=== PATIENT | male | born 1955 | race Caucasian/White ===

== ENCOUNTER 2021-03-25 13:51 | Inpatient (IN) | payer MEDICARE ==
[~2021-03-25] VITALS: Ht 175.3 cm; Wt 80.7 kg
[2021-03-25 14:21] LABS: *BILIRUBIN,URIN NEGATIVE (NEGATIVE); *CLARITY,URINE CLEAR (CLEAR); *COLOR,URINE YELLOW (YELLOW); *KETONES,URINE NEGATIVE (NEGATIVE); *UROBILINOGEN,URINE 0.2 E.U./dl (NORMAL); LEUKOCYTE ESTERASE ,URINE TRACE (NEGATIVE); NITRITE, URINE NEGATIVE (NEGATIVE); UGLUCOSE NEGATIVE (NEGATIVE)
[2021-03-25 14:27] LABS: *AMPHETAMINE, URINE NEGATIVE (NEGATIVE); *CANNABINOID, URINE NEGATIVE (NEGATIVE); *COCCAINE, URINE NEGATIVE (NEGATIVE); *OPIATE, URINE NEGATIVE (NEGATIVE); *PHENCYCLIDINE SCREEN,URINE NEGATIVE (NEGATIVE)
[2021-03-25 14:30] LABS: *BLOOD, URINE TRACE INTACT (NEGATIVE)
[2021-03-25 14:43] LABS: HEMATOCRIT 47.3 % (36.7-47.1); MEAN CORPUSCULAR HEMOGLOBIN 32.6 uug (23.8-33.4); PLATELET COUNT (AUTO) 329 K/uL (152-348)
[2021-03-25 14:46] LABS: BACTERIA,URINE FEW /HPF (NONE SEEN); RBC,URINE 0-3 /HPF (0-3)
[2021-03-25 14:46] LABS: CARBON DIOXIDE 26 mmol/L (21-32); CHLORIDE 103 mmol/L (98-107); CREATININE 0.9 mg/dL (0.6-1.3); GLUCOSE 106 mg/dL (74-106); POTASSIUM 3.9 mmol/L (3.5-5.1); UREA NITROGEN, BLOOD 13 mg/dL (7-18)
[2021-03-25 14:47] LABS: SQUAMOUS EPITHELIAL CELL,UR NONE SEEN /HPF (NONE SEEN)
[2021-03-25 14:52] LABS: ALANINE AMINOTRANSFERASE 18 U/L (16-63); ALKALINE PHOSPHATASE 79 U/L (50-136); ASPARTATE AMINOTRANSFERASE 11 U/L (15-37); BILIRUBIN,DIRECT 0.1 mg/dL (0.0-0.2); BILIRUBIN,TOTAL 0.5 mg/dL (0.2-1.0); TOTAL PROTEIN, SERUM 6.8 g/dL (6.4-8.2)
--- NOTE | 2021-03-25 14:55 | NUR ---
PT IS IN ROOM #5. DR SALAS EVALUATED THE PT.
[2021-03-25 14:56] LABS: ACETAMINOPHEN < 2.0 ug/mL (10-30); ETHANOL < 3 MG/DL (0-0)
--- NOTE | 2021-03-25 16:05 | NUR ---
Gps/Development Consultant- Received report from Charlie MARTIN (ER) Received patient via gurney, in no sign of any distress. Upon face to face encounter patient verbalized feelings of hopelessness, claimed had been depressed, not living the house, not showering, no hygiene, no plan for self care, denies any S.I. Per patient he watches TV most of the time at home, poor nutritional intake. Noted patient, long hair all tangled, never comb his hair, long fingernails, long elizabeth . Per patient her used to drink 25 years ago ( heavy liquor , gin) always falling , shattering his face, that he ends up in a Behavioral Health unit in [place], [place]. Claimed he never takes any drugs. Spoke to Monica(Ex-) [phone] , verbalized her total support. Oriented to unit setting , routine admission care .
--- NOTE | 2021-03-25 16:06 | NUR ---
REPORT WAS GIVEN TO RN MHU. PT WAS TRANSFERED TO M[facility] ROOM #137.
[2021-03-25 16:19] VITALS: BP 125/63
[2021-03-25] MEDS ORDERED: TRAZODONE 50 MG TABLET PO SCH (18:00)
--- NOTE | 2021-03-25 18:00 | NUR ---
Gps/Emergency Management System Director- Son Dann requesting to talk to Inspector [employer]icon[employer] Wafer, informed Inspector [employer]icon[employer] Wafer gone for the day and will be back tomorrow. Son claimed patient might not want to take medications as prescribed by Dr Nagy .
--- NOTE | 2021-03-25 18:09 | NUR ---
Gps/Bankruptcy Law Specialist- Rudolph Quigley ([phone]) in to visit patient, provided information about patient history. Claimed patient had long history of bipolar disorder , with waves of few years of depression on and off , agitations. Son wants to be the first contact center team lead , claimed his Mother(Monica) is not strong enough to give him limits and directions. Patient stayed in the dinning room was able to eat dinner. Dr Shelley Nagy was in to see patient
[2021-03-25] MEDS ORDERED: MAGNESIUM HYDROXIDE 30 ML LIQUID UDC PO PRN (18:45)
[2021-03-25] MEDS ORDERED: ACETAMINOPHEN 325 MG TABLET PO PRN (18:45)
[2021-03-25] MEDS ORDERED: MAG HYDROX/AL HYDROX/SIMETH 30 ML LIQUID UDC PO PRN (18:45)
[2021-03-25 19:58] VITALS: BP 126/62
[2021-03-25] MEDS ORDERED: LORAZEPAM 1 MG TABLET PO PRN (20:00)
[2021-03-25] MEDS: TRAZODONE 100 MG TABLET PO SCH (21:00)
[2021-03-26 07:30] VITALS: BP 151/67
--- NOTE | 2021-03-26 09:52 | NUR ---
Firearms Report: Senior Accounting Manager completed and submitted a [employer] firearms report for 5150 grave disability certifications. A copy of report has been placed in patient chart.
--- NOTE | 2021-03-26 11:27 | NUR ---
KATHY Initial Discharge Plan: Patient resides at home [address], [place] [address] ([phone]) with ex- Monica Mccray. Patient would like to return home upon discharge. KATHY will continue to work with patient, family, and MD to ensure a safe and proper discharge plan.
--- NOTE | 2021-03-26 15:39 | NUR ---
KATHY Family Contact: SW spoke with patient's ex- Monica Mccray ([phone]) and discussed treatment and discharge plan.
[2021-03-26 16:43] VITALS: BP 103/62
--- NOTE | 2021-03-26 17:00 | NUR ---
Gps/Therapy Coordinator- Patient noted had been in and out of his room to activity room watching TV, encouraged verbalizations of his needs. , stated " will be better off when i get out of here" Encouraged to initiate simple tasks to assist self with his simple hygiene , flat guarded.
[2021-03-26 20:00] VITALS: BP 121/62
[2021-03-26] MEDS: TRAZODONE 100 MG TABLET PO SCH (21:54)
--- NOTE | 2021-03-27 05:50 | NUR ---
GPS: Pt.slept 6 hrs.last night. Continues to refuse shower despite numerous attempts by staff. Poor hygiene and is disheveled. Denies SI. Gets irritable when reminded to keep door open for safety. Unit rules re-inforced prn. Will continue to monitor.
[2021-03-27 07:45] VITALS: BP 117/58
[2021-03-27 08:20] LABS: *BILIRUBIN,URIN NEGATIVE (NEGATIVE); *CLARITY,URINE CLEAR (CLEAR); *COLOR,URINE YELLOW (YELLOW); *KETONES,URINE NEGATIVE (NEGATIVE); *UROBILINOGEN,URINE 0.2 E.U./dl (NORMAL); LEUKOCYTE ESTERASE ,URINE NEGATIVE (NEGATIVE); NITRITE, URINE NEGATIVE (NEGATIVE); PH,URINE 5.5 (5.0-8.0); UGLUCOSE NEGATIVE (NEGATIVE)
[2021-03-27 08:57] LABS: *BLOOD, URINE TRACE (NEGATIVE)
[2021-03-27 09:04] LABS: BACTERIA,URINE NONE SEEN /HPF (NONE SEEN); MUCUS,URINE FEW /LPF (0-FEW); RBC,URINE 0-3 /HPF (0-3); SQUAMOUS EPITHELIAL CELL,UR NONE SEEN /HPF (NONE SEEN); WBC,URINE 0-3 /HPF (0-3)
--- NOTE | 2021-03-27 13:19 | NUR ---
GPS: Nursing Notes: Thought Disorder: Patient is awake and responding to his name, isolative and withdrawn in his room, continue to refuse to shower, poor hygiene, unkempt appearance, setting limits, but patient continue to closed the door, depressed mood, verbally amparo for safety, denies SI/HI, believes that he would be better off at home, needs a lot of prompting for minimal participation in therapeutic groups, low energy level, unable to formulate a viable plan for self care, continue to monitor for safety, continue with treatment plan.
[2021-03-27 16:13] VITALS: BP 106/63
[2021-03-27 20:00] VITALS: BP 102/67
[2021-03-27] MEDS: TRAZODONE 100 MG TABLET PO SCH (20:13)
[2021-03-28 07:30] VITALS: BP 126/67
[2021-03-28 15:08] VITALS: BP 119/64
--- NOTE | 2021-03-28 16:33 | NUR ---
GPS: Nursing Notes: Self Care Deficit: Patient is awake and responding to his name, unkempt appearance, refusing to shower, patient promise her ex- that he was going to take a shower today, but continue to refuse to shower, stated "I don't want to have visitors today..", calling his ex- and informing her not to come today, isolative and withdrawn in his room, malodorous, disheveled, poor grooming, depressed mood and withdrawn affect, unable to formulate a viable plan for self care, continue to monitor for safety, verbally amparo for safety, denies SI/HI, continue with treatment plan.
[2021-03-28 20:00] VITALS: BP 129/66
[2021-03-28] MEDS: TRAZODONE 100 MG TABLET PO SCH (20:32)
[2021-03-29 07:32] VITALS: BP 108/72
[2021-03-29 15:54] VITALS: BP 108/72
--- NOTE | 2021-03-29 18:34 | NUR ---
GPS: Nursing Notes: Self Care Deficit: Patient is awake and responding to his name, isolative and withdrawn in his room, encourage to shower, continue to refuse to shower, stated "I take a shower tomorrow..", unkempt appearance, poor hygiene, malodorous, believes that he does not need to shower, gets easily irritable when redirected, unable to formulate a viable plan for self care, continue with treatment plan.
[2021-03-29 19:58] VITALS: BP 120/63
[2021-03-29] MEDS: DIVALPROEX 250 MG TABLET.DR PO SCH (20:27)
[2021-03-29] MEDS: TRAZODONE 100 MG TABLET PO SCH (20:27)
[2021-03-30 07:30] VITALS: BP 98/66
[2021-03-30] MEDS: DIVALPROEX 250 MG TABLET.DR PO SCH ×2 (08:22→20:10)
--- NOTE | 2021-03-30 13:15 | NUR ---
GPS: Nursing Notes: Self Care Deficit: Patient is awake and responding to his name, assisted with ADL's, redirected during shift, encourage to take a shower. Patient agree to shower, shave, and cut his hair today, needs prompting to participate in therapeutic groups, spindle carver able to cut his toenails after he showered, continue to be isolative in his room at times, depressed mood and anxious affect, gets easily irritable at times, unable to formulate a viable plan for self care, continue with treatment plan.
[2021-03-30 14:37] VITALS: BP 117/71
[2021-03-30 19:40] VITALS: BP 108/55
[2021-03-30] MEDS: TRAZODONE 100 MG TABLET PO SCH (20:10)
--- NOTE | 2021-03-31 06:28 | NUR ---
GPS: Pt.slept 7 hrs.last night. Less irritable and denies feeling depressed. Re-assured and re-directed prn. Good personal hygiene encouraged. Safe environment provided. Will continue to monitor.
[2021-03-31 07:30] VITALS: BP 113/64
[2021-03-31] MEDS: DIVALPROEX 250 MG TABLET.DR PO SCH ×2 (08:35→20:56)
--- NOTE | 2021-03-31 09:00 | NUR ---
GPS: RECEIVED PT ON BED. AWAKE, DONE WITH BREAKFAST. PT COOPERATIVE WITH CARE. MEDICATION COMPLIANT OF THIS MORNING. PT TOOK A SHOWER YESTERDAY FOR THE FIRST TIME.
--- NOTE | 2021-03-31 12:43 | NUR ---
KATHY PC Hearing: Patient had 5250 probable cause hearing today and it was upheld for grave disability.
[2021-03-31 16:00] VITALS: BP 113/76
--- NOTE | 2021-03-31 18:22 | NUR ---
GPS: PT ALERT AND VERBALLY RESPONSIVE. NO AGITATION OR ANXIETY NOTED. PT COMPLIANT WITH MEDS AND CARE. PT STAYED IN HIS ROOM. X- CALLED AND SPOKE TO PT. ENCOURAGED PT TO JOIN GROUP THERAPY.
[2021-03-31 19:51] VITALS: BP 133/71
[2021-03-31] MEDS: TRAZODONE 100 MG TABLET PO SCH (20:55)
--- NOTE | 2021-04-01 03:10 | NUR ---
Received to care, at start of shift, isolative, in room, but pleasant upon approach. Watched tv for a while, and went to sleep, around 2330. As of now, he remains asleep. No distress noted. Will continue to monitor closely.
--- NOTE | 2021-04-01 06:00 | NUR ---
Slept 5.5 hours, total.
[2021-04-01 07:30] VITALS: BP 127/80
[2021-04-01] MEDS: DIVALPROEX 250 MG TABLET.DR PO SCH ×2 (08:08→20:46)
--- NOTE | 2021-04-01 10:30 | NUR ---
GPS: SACRAL REDNESS AND RIGHT BUTTOCK BLISTER PT HAD A SHOWER TODAY AND NOTED WITH SACRAL AREA REDNESS AND RIGHT BUTTOCK BLISTER. WILL GET WOUND CONSULT. Addendum: 04/01/21 at 1842 by DANE HOLLINGSWORTH RN ERROR: WRONG PT NOTES.
[2021-04-01 16:00] VITALS: BP 104/64
--- NOTE | 2021-04-01 18:42 | NUR ---
GPS: PT ALERT AND VERBALLY RESPONSIVE. PT STAYS IN THE ROOM ISOLATIVE MOST OF THE TIME, READING MAGAZINES. PT WENT TO DINING ROOM AND WATCH TV. ENCOURAGED TO PARTICIPATE WITH GROUP THERAPY.
[2021-04-01] MEDS: TRAZODONE 100 MG TABLET PO SCH (20:46)
[2021-04-01 21:23] VITALS: BP 108/59
--- NOTE | 2021-04-02 03:30 | NUR ---
Received to care, at start of shift, isolative, in room, but pleasant upon approach. Watched tv for a while, and went to sleep, around 0030. As of now, he remains asleep. No distress noted. Will continue to monitor closely.
--- NOTE | 2021-04-02 06:00 | NUR ---
Slept 5 hours total. Continues to sleep. no dsitress, noted.
[2021-04-02 07:30] VITALS: BP 122/65
[2021-04-02] MEDS: DIVALPROEX 250 MG TABLET.DR PO SCH ×2 (10:11→20:25)
[2021-04-02 16:00] VITALS: BP 126/68
[2021-04-02 19:50] VITALS: BP 124/69
[2021-04-02] MEDS: TRAZODONE 100 MG TABLET PO SCH (20:25)
--- NOTE | 2021-04-03 01:39 | NUR ---
Received to care, at start of shift, watching tv with peers, with minimal interaction. He went to sleep, around an hour or so, ago. As of now, he remains asleep. No distress noted. Will continue to monitor closely.
--- NOTE | 2021-04-03 06:00 | NUR ---
Slept well. Continues to sleep. no distress noted.
[2021-04-03 07:30] VITALS: BP 138/72
[2021-04-03] MEDS: DIVALPROEX 250 MG TABLET.DR PO SCH ×2 (08:39→20:28)
[2021-04-03 16:00] VITALS: BP 104/64
--- NOTE | 2021-04-03 18:07 | NUR ---
GPS: PT ALERT AND ORIENTED. COOPERATIVE WITH CARE AND COMPLIANT WITH MEDICATIONS. PARTICIPATED WITH GROUP THERAPIES. WITH EPISODE OF DEPRESSION NOTED. PT CALM AND RELAXED MOST OF THE TIME.
[2021-04-03 20:00] VITALS: BP 112/60
[2021-04-03] MEDS: TRAZODONE 100 MG TABLET PO SCH (20:28)
[2021-04-04] MEDS: TEMAZEPAM 7.5 MG CAPSULE PO PRN ×2 (00:07→22:49)
[2021-04-04 07:56] VITALS: BP 100/59
[2021-04-04] MEDS: DIVALPROEX 250 MG TABLET.DR PO SCH ×2 (08:21→20:32)
[2021-04-04 15:56] VITALS: BP 114/63
[2021-04-04 20:19] VITALS: BP 112/62
[2021-04-04] MEDS: TRAZODONE 100 MG TABLET PO SCH (20:32)
[2021-04-05 07:52] VITALS: BP 141/71
[2021-04-05] MEDS: DIVALPROEX 250 MG TABLET.DR PO SCH ×2 (08:45→20:11)
[2021-04-05 16:07] VITALS: BP 130/69
--- NOTE | 2021-04-05 17:11 | NUR ---
patient is alert and oriented. he is cooperative, redirectable, but is anxious. patient is medication compliant. patient denies suicidal and homicidal ideation. patient is able to ambulate independently. Vital signs are WNL. patient able to provide for self care and ADL's independently. encouraged to participate in unit groups and therapeutic activities. educated about impulse control and safety. verbalizes understanding.
[2021-04-05] MEDS: TRAZODONE 100 MG TABLET PO SCH (20:01)
[2021-04-05 20:06] VITALS: BP 104/62
[2021-04-05] MEDS: TEMAZEPAM 7.5 MG CAPSULE PO PRN (22:29)
--- NOTE | 2021-04-06 03:17 | NUR ---
Received patient in the dinning room, compliant, pleasant upon approach, med compliant, compliant with care, semi fair insight and semi fair judgement. Patient will remain in psych facility for further evaluation and treatment.
[2021-04-06 07:30] VITALS: BP 115/61
[2021-04-06] MEDS: DIVALPROEX 250 MG TABLET.DR PO SCH ×2 (08:18→20:27)
[2021-04-06 15:03] VITALS: BP 105/63
--- NOTE | 2021-04-06 18:01 | NUR ---
patient is alert and oriented x4. he is calm, cooperative, and redirectable. patient is medication compliant. patient denies suicidal and homicidal ideation. patient is able to ambulate independently, able to provide for self care and ADL's independently. encouraged to participate in unit groups and therapeutic activities. educated about impulse control and safety. verbalizes understanding.
[2021-04-06 20:00] VITALS: BP 119/56
[2021-04-06] MEDS: TRAZODONE 100 MG TABLET PO SCH (20:27)
--- NOTE | 2021-04-07 02:25 | NUR ---
Received patient, at the start of the shift, in the day room, interacting with his peers. Patient is aware of being discharged in am and is glad to be going. No SI or HI, no behavioral issues and no distress. Continuing to monitor and follow the plan of care.
[2021-04-07 07:30] VITALS: BP 128/39
[2021-04-07] MEDS: DIVALPROEX 250 MG TABLET.DR PO SCH (08:31)
--- NOTE | 2021-04-07 11:29 | NUR ---
GPS: PT ALERT AND VERBALLY RESPONSIVE. PT EXCITED TO BE DISCHARGE TODAY. PT COOPERATIVE WITH CARE AND COMPLIANT WITH MEDICATIONS. EX- PETE WILL MANAGER WINTER PT AT 1300. PT WILL BE FOLLOW-UP BY [facility] AND WILL BE ADMITTED TOMORROW. PT DENIES SUICIDAL/ HOMICIDAL IDEATION. PRESENTS EUTHYMIC MOOD AND CONGRUENT AFFECT. PT IS AWARE AND AGEEABLE WITH DISCHARGE PLAN.
--- NOTE | 2021-04-07 11:38 | NUR ---
Discharge Note: Patient will be discharged home [address] [place] [address] ([phone]). Patients ex- Monica Mccray ([phone]) will be picking up the patient today at 1PM. Patient is alert and oriented x4 and is aware and agreeable with discharge plan. Pt denies suicidal or homicidal ideation. Patient presents with euthymic mood and congruent affect. Patient is referred to [facility] [place] [address] ([phone]) and has an appointment scheduled on 04/13/21 at 1PM. Patient is referred to [facility] for Primary [facility] [place] [phone]: ([phone]) and has an Appointment scheduled on 05/12/21 at 9:20AM. Patient is also referred to [facility]. ( ) Michelle Hutchison and will be admitted tomorrow 04/08/21. Patient will have medication management, shower assistance, physical therapy, and nurse visits several times a week. Patient was also provided with outpatient mental health resources to [facility] Crisis Line , and the National Suicide Prevention Lifeline .
--- NOTE | 2021-04-07 13:43 | NUR ---
GPS: PT DISCHARGED FROM THE HOSPITAL TO HOME. PICKED UP BY EX- HERBER. PT EXCITED TO GO HOME. COMPLIANT WITH MEDS AND COOPERATIVE WITH CARE. PT INSTRUCTED THAT [facility] WILL BE ADMITTING HIM. PT WILL ALSO HAVE APPOINTMENT FOR FOLLOW UP. MEDICATION PRESCRIPTIONS GIVEN AND ALL BELONGINGS GIVEN AND FORMS SIGNED.
== END 2021-04-07 13:40 | disposition home or self-care (01) | DRG 881 ==
LOC: ER 13:51 → GPS 15:48
PROVIDERS: ADMIT Psychiatry & Neurology Psychiatry; ATTEND Internal Medicine
PROC: 0HBRXZZ Excision of Toe Nail, External Approach (ICD-10-PCS; principal; 2021-03-30)
DX: F32.A Depression, unspecified (principal); F29 Unspecified psychosis not due to a substance or known physiological condition; F41.9 Anxiety disorder, unspecified; L85.3 Xerosis cutis; M20.41 Other hammer toe(s) (acquired), right foot; M20.42 Other hammer toe(s) (acquired), left foot; Z20.822 Contact with and (suspected) exposure to COVID-19; Z73.6 Limitation of activities due to disability; M62.81 Muscle weakness (generalized); F39 Unspecified mood [affective] disorder; R35.0 Frequency of micturition; L60.3 Nail dystrophy
CPT/HCPCS: 36415; 71045; 85025; 87086; 93005; A4663; G0480; J3490